=== PATIENT | male | born 1985 | race Hispanic/Latino ===

== ENCOUNTER 2017-01-14 11:03 | Emergency (ER) | payer OTHER ==
[~2017-01-14] VITALS: Ht 182.9 cm; Wt 96.6 kg
[2017-01-14 11:44] VITALS: BP 144/88
--- NOTE | 2017-01-14 11:55 | ED NECK/BACK PAIN COMPLAINT ---
History of Present Illness General Chief Complaint: Neck/Upper Back Pain/Injury Stated Complaint: LT SIDED NECK,SHOULDER PAIN Source: patient Exam Limitations: no limitations Vital Signs & Intake/Output Vital Signs & Intake/Output Vital Signs Date Time Temp Pulse Resp B/P Pulse O2 O2 Flow FiO2 Ox Delivery Rate 01/14 1144 95.9 63 20 144/88 98 Room Air Room Air Allergies Coded Allergies: NO KNOWN ALLERGIES (04/23/16) Triage Note: PT TO ED WITH C/O LEFT NECK X 2 WEEKS, "TAKING HOT SHOWERS WHICH HELP, THEN IT COMES BACK". PT DENIES FALL OF INJURY/HEAVY LIFTING TO THE AREA. Triage Nurses Notes Reviewed? yes HPI: Patient presents with a weeklong history of left neck pain. The pain is in his left scapular as well as neck area. Patient thinks that he slept wrong because he woke up one morning with the pain. Patient is been using icy hot without any relief. Patient has not taken any medications for. Patient denies any weakness or numbness. The pain is aching in nature. The pain is 5 out of 10. 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 Patient has no other complaints. Past History Travel History Traveled to [place] past 21 day No Medical History Any Pertinent Medical History? 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 No Review of Systems Review of Systems Constitutional: Reports: no symptoms. Ears, Nose, Throat, Mouth: Reports: no symptoms. Respiratory: Reports: no symptoms. Cardiovascular: Reports: no symptoms. Gastrointestinal/Abdominal: Reports: no symptoms. Musculoskeletal: Reports: see HPI, back pain. Skin: Reports: no symptoms. Neurological/Psychological: Reports: no symptoms. Physical Exam Physical Exam General Appearance: well developed/nourished, alert, awake, anxious, mild distress Head: atraumatic Eyes: Bilateral: PERRL, EOMI. Ears, Nose, Throat, Mouth: hearing grossly normal, moist mucous membrane Neck: supple, muscle spasm, tender lateral, no midline tenderness Respiratory: normal breath sounds, chest non-tender, no respiratory distress, lungs clear Cardiovascular: regular rate/rhythm, normal peripheral pulses Extremities: non-tender, normal range of motion Neurologic/Psych: no motor/sensory deficits, awake, alert, oriented x 3, normal gait, normal mood/affect Progress Differential Diagnosis: herniated disc, myofascial strain Plan of Care: Anti-inflammatories and muscle relaxers Departure Departure Disposition: HOME OR SELF CARE Condition: Stable Clinical Impression Primary Impression: Muscle spasm Referrals: UNKNOWN (PCP/Family) Additional Instructions: TAKE MEDICATIONS NEEDED DO NOT DRIVE THE FORK LIFT AFTER TAKING MUSCLE RELAXERS RETURN NEEDED OR FOR ANY CONCERNS Departure Forms: Customer Survey General Discharge Information Prescriptions: Current Visit Scripts Cyclobenzaprine HCl 1 TAB PO Q8P #20 TAB Ibuprofen 1 TAB PO TID PRN PAIN #20 TAB with food
[2017-01-14] MEDS ORDERED: CYCLOBENZAPRINE10 M1 PO (12:10)
[2017-01-14] MEDS ORDERED: IBUPROFEN600 M1 PO (12:10)
== END 2017-01-14 12:17 ==
LOC: ERH 11:03
DX: M62.838 Other muscle spasm (principal)